=== PATIENT | female | born 1940 | race Two or more races ===

== ENCOUNTER 2018-11-06 09:12 | Day surgery (SDC) | payer MEDICARE ==
[~2018-11-06] VITALS: Ht 152.4 cm; Wt 72.7 kg
[2018-11-06] VITALS (8 sets, daily range): BP systolic 159–181; BP diastolic 77–97
[~2018-11-06 09:12] MED LIST: IBUP-1984 PO; LISI40TA4 PO
[2018-11-06] MEDS ORDERED: LISI10TA4 PO (09:43)
[2018-11-06] MEDS ORDERED: iohexol 300 MG/1 ML 50ml polymer ONE (10:40)
[2018-11-06] MEDS ORDERED: fentaNYL/PF 50MCG/1 ML 2ML syringe ONE (10:40)
[2018-11-06] MEDS ORDERED: glucagon, human recombinant 1mg kit ONE (10:40)
[2018-11-06] MEDS ORDERED: LIDOcaine Viscous 15ml cup ONE (10:40)
[2018-11-06] MEDS ORDERED: MIDAZolam 5mg/5ml vial ONE (10:40)
[2018-11-06] MEDS ORDERED: diphenhydrAMINE 50 mg/ml inj ONE (10:41)
[2018-11-06] MEDS ORDERED: ondansetron/PF 4mg/2ml inj ONE (11:53)
== END 2018-11-06 12:30 | disposition home or self-care (01) ==
LOC: GI LAB 09:12
PROVIDERS: ATTEND Internal Medicine Gastroenterology
DX: Z46.59 Encounter for fitting and adjustment of other gastrointestinal appliance and device (principal); K83.8 Other specified diseases of biliary tract
CPT/HCPCS: 43264; 43275; 99152; C1769; C1773; J1200; J1610; J2250; J2405; J3010; J7040; Q9967; A4620

== ENCOUNTER 2024-08-27 05:43 | Day surgery (SDC) | payer MEDICARE ==
--- NOTE | 2024-08-21 14:29 | ELECTROCARDIOGRAPH REPORT ---
[facility] Test Date: 2024-08-21 Test Time: 14:25:48 Pat Name: SOLOMON NEVILLE Department: [facility]-PRE-OP Patient ID: [id number] Room: Gender: F Reexaminer: UDAY : 1940 Requested By: JANIYA DUVALL Order Number: [id number] Reading MD: Dr. Juwan Peña Measurements Intervals [place] Rate: 92 P: 77 NM: 191 QRS: 73 QRSD: 106 T: 41 QT: 372 QTc: 461 Interpretive Statements Sinus rhythm Ventricular premature complex Probable left atrial enlargement Electronically Signed On 08-24-2024 8:12:[address] Juwan Peña Please click the below link to view image of tracing.
[2024-08-21 15:14] LABS: BASOPHILS % (AUTO) 0.4 % (0-1); EOSINOPHILS % (AUTO) 0.4 % (0-6); LYMPHOCYTES # (AUTO) 1.2 X10'3 (1.1-4.8); LYMPHOCYTES % (AUTO) 16.6 % (21-51); MEAN CORPUSCULAR HEMOGLOBIN 29.7 PG (27.0-31.0); MEAN CORPUSCULAR HGB CONC 33.7 g/dL (33.0-36.5); MEAN CORPUSCULAR VOLUME 88.1 FL (78-98); MEAN PLATELET VOLUME 9.1 FL (7.4-10.4); MONOCYTES # (AUTO) 0.3 X10'3 (0-0.9); MONOCYTES % (AUTO) 4.5 % (2-12); NEUTROPHILS # (AUTO) 5.7 X10'3 (1.8-7.7); NEUTROPHILS % (AUTO) 78.1 % (42-75); PRE OP HEMATOCRIT 37.1 % (35.0-45.0); PRE OP HEMOGLOBIN 12.5 g/dL (12.0-16.0); PRE OP PLATELET COUNT 207 X10'3 (140-440); PRE OP WHITE BLOOD COUNT 7.3 10'3 (4.8-10.8); RED BLOOD COUNT 4.21 X10'6 (4.20-5.60)
[2024-08-21 15:26] LABS: ALBUMIN 4.4 G/DL (3.4-5.0); ALBUMIN/GLOBULIN RATIO 1.2 (1.1-1.5); ALKALINE PHOSPHATASE 112 IU/L (46-116); BLOOD UREA NITROGEN 15 MG/DL (7-18); CALCIUM 9.6 MG/DL (8.5-10.1); CHLORIDE 104 MMOL/L (99-107); CREATININE 0.75 MG/DL (0.40-0.90); PRE OP ALT 24 U/L (30-65); PRE OP ANION GAP 10 (8-16); PRE OP AST 19 U/L (10-37); PRE OP BILIRUB, TOTAL 0.5 MG/DL (0.0-1.0); PRE OP GLUCOSE 150 MG/DL (70-104); PRE OP POTASSIUM 3.6 MMOL/L (3.4-5.1); PRE OP SODIUM 142 MMOL/L (135-145); TOTAL CARBON DIOXIDE 28.2 MMOL/L (24-32); eGFR 73 ML/MIN
[~2024-08-27] VITALS: Ht 157.5 cm; Wt 89.0 kg
[2024-08-27] VITALS (12 sets, daily range): BP systolic 156–186; BP diastolic 79–94; PULSE 79–98; RESP 10–16; TEMP 98.3; O2SAT 88–100
[2024-08-27] MEDS: ceFAZolin 2gm/dext,iso 50mL 50 ML IV ONE (05:30)
[~2024-08-27 05:43] MED LIST changes: +ACET-2971 PO; -IBUP-1984 PO; -LISI40TA4 PO; +LORA-268 PO; +LOSA50TA64 PO; +PANT40TA54 PO
[2024-08-27] MEDS ORDERED: BUPIVAcaine/PF 2.5mg/ml (0.25%) 10ml vial ONE (07:02)
[2024-08-27] MEDS ORDERED: LIDOcaine 2% (20mg/ml) 5ml vial ONE ×2 (07:02→07:18)
[2024-08-27] MEDS ORDERED: ringers solution, lacted 1,000 ML IV SCH (07:10)
[2024-08-27] MEDS ORDERED: morphine 2 MG/ML inj. syringe IV PRN (07:10)
[2024-08-27] MEDS ORDERED: fentaNYL/PF 50MCG/1 ML 2ML syringe ONE (07:17)
[2024-08-27] MEDS ORDERED: MIDAZolam 1 MG/ML 5ML VIAL ONE (07:17)
[2024-08-27] MEDS ORDERED: propofol inj 20 ML IV ONE (07:18)
[2024-08-27] MEDS ORDERED: LIDOcaine 1%/PF 5ML 10 MG/ML VIAL ONE (07:19)
[2024-08-27] MEDS: famotidine 20mg tablet PO ONE (07:19)
[2024-08-27] MEDS ORDERED: LIDOcaine 0.5% (5mg/ml) 50ml vial ONE (07:19)
[2024-08-27] MEDS: ringers solution, lacted 1,000 ML IV SCH (07:20)
[2024-08-27] MEDS ORDERED: labetalol 20mg/4ml (5mg/ml) syringe IV ONE (08:26)
[2024-08-27] MEDS: morphine 4 MG/ML inj SYRINge IV PRN (09:03)
[2024-08-27] MEDS: ondansetron/PF 4mg/2ml inj IV PRN (09:13)
[2024-08-27] MEDS: labetalol 20mg/4ml (5mg/ml) syringe IV PRN (09:34)
--- NOTE | 2024-08-27 10:42 | OPERATIVE REPORT ---
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 Surgery is indicated for relief of symptoms. Procedure- The risks, benefits, expected results, and possible complications of the planned procedure had been explained to the patient and informed consent obtained PROCEDURE: After the block was given the arm was prepped and draped in the usual manner. An incision was made in the palm ulnar to the thenar crease in line with the ring finger over the previous surgical scar. Blunt dissection was performed through deeper tissues until the reconstituted transverse carpal ligament was encountered. The carpal tunnel was entered with an incision in line with the skin incision. The nerve was protected and the ligament was released distally and proximally. The forearm fascia proximal to the incision was released using bunt Metzenbaum scissors. The nerve was decompressed at this point. The wound was irrigated and the small bleeders were cauterized. The wound was then closed with 5-O nylon sutures. Attention was then turned to the elbow. An incision was made over the medial elbow posterior to the epicondyle, through skin. Blunt dissection was done to the cubital tunnel. De Jesus's ligament was opened, the nerve was identified and protected. The nerve was decompressed proximally and distally 6 cm in each direction. It was decompressed at this time. Small bleeders were cauterized. The nerve was unstable with elbow flexion so a medial epicondylectomy was performed using an osteotome, the bone was treated with bone wax, the wound was closed with vicryl and Prolene suture, followed by Steri-strips. Marcaine was injected at both sites and a sterile dressing was applied. The tourniquet was released and the hand perfused well. The patient was taken to the recovery room in stable condition and tolerated the procedure well. BOYD ROMEO Jr., MD Aug 27, 2024 10:42
== END 2024-08-27 10:12 | disposition home or self-care (01) ==
LOC: PAS 05:43
PROVIDERS: ATTEND Orthopaedic Surgery Hand Surgery
DX: G56.01 Carpal tunnel syndrome, right upper limb (principal); G56.21 Lesion of ulnar nerve, right upper limb; I10 Essential (primary) hypertension; Z90.710 Acquired absence of both cervix and uterus; K21.9 Gastro-esophageal reflux disease without esophagitis; M19.90 Unspecified osteoarthritis, unspecified site; Z88.0 Allergy status to penicillin; Z79.899 Other long term (current) drug therapy; Z98.890 Other specified postprocedural states; Z88.6 Allergy status to analgesic agent
CPT/HCPCS: 36415; 64718; 64721; 80053; 82948; 85025; 93005; A4215; A6222; A6402; A6449; J2003; J2250; J2270; J2405; J2704; J3010; J3490; J7030; J7120; Z7506; Z7512; Z7610